=== PATIENT | female | born 1970 | race African-American/Black ===

== ENCOUNTER 2017-05-24 02:47 | Emergency (ER) | payer OTHER ==
[~2017-05-24] VITALS: Ht 165.1 cm; Wt 70.0 kg
[~2017-05-24 02:47] MED LIST: HYDR-2768 PO; LABE100T2 PO; ZOLO25TA PO
[2017-05-24 03:01] VITALS: BP 198/106; PULSE 70; RESP 18; TEMP 98.1; O2SAT 98
[2017-05-24 03:39] VITALS: BP 157/90; PULSE 74; RESP 18; O2SAT 97
--- NOTE | 2017-05-24 03:52 | PD ---
HPI . Headache Chief Complaint: Headache Time Seen by Provider: 03:46 Travel History International Travel<30 days: No Contact w/Intl Traveler<30days: No Traveled to known affect area: No History of Present Illness HPI This patient presents complaining with a right-sided headache which started at 1 :20 AM. She rates the pain 9/10. She took Tylenol with mild relief of her symptoms. The headache is associated with nausea and palpitations. 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; HELLP) Anxiety: No Depression: No Heart Rhythm Problems: No Cancer: No Cardiac Catheterization: No Cardiovascular Problems: Yes (CHEST PAIN) High Cholesterol: No Chemotherapy: No Chest Pain: No Congestive Heart Failure: Yes (DURING , NOT SINCE) COPD: No Cerebrovascular Accident: No Diabetes: No Diminished Hearing: No Endocrine: No Gastrointestinal Disorders: No GERD: No Glaucoma: No Genitourinary: No Headaches: Yes (MIGRAINES IN THE PAST) Hepatitis: No Hiatal Hernia: No Hypertension: Yes Kidney Stones: No Medical other: Yes (chf during pregancy) Musculoskeletal: No Neurologic: No Psychiatric: No Reproductive: No Respiratory: No Immunizations Current: Yes Myocardial Infarction: No Radiation Therapy: No Renal Failure: No Sickle Cell Disease: No Sleep Apnea: No Thyroid Disease: No Ulcer: No Tetanus Vaccination: Unknown Influenza Vaccination: No ?: Not : 3 Para: 2 Miscarriage: 1 Dilation and Curettage (D&C): Yes Past Surgical History Abdominal Surgery: No AICD: No Cardiac Surgery: No Section: Yes (x 1) Coronary Artery Bypass Graft: No Ear Surgery: No Endocrine Surgery: No Eye Surgery: No Genitourinary Surgery: No Gynecologic Surgery: Yes (d and c ) Hysterectomy: Yes Insulin Pump: No Neurologic Surgery: No Oral Surgery: Yes (wisdom tooth removed) Pacemaker: No Thoracic Surgery: No Other Surgery: No Family History Family Myocardial Infarction: No Social History Alcohol Use: Yes (OCC) Tobacco Use: No Substance Use: No Allergies-Medications (Allergen,Severity, Reaction): Coded Allergies: No Known Allergies (Verified Adverse Reaction, Unknown, 05/24/17) Reported Meds & Prescriptions Reported Meds & Active Scripts Active Reported Zoloft (Sertraline HCl) 25 Mg Tab 0 PO DAILY UNKNOWN DOSE Hctz (Hydrochlorothiazide) 25 Mg Tab 25 Mg PO DAILY Normodyne (Labetalol HCl) 100 Mg Tab 100 Mg PO DAILY Review of Systems Except as stated in HPI: all other systems reviewed are Neg Eyes: Positive: Photophobia HENT: Positive: Headaches Cardiovascular: Positive: Palpitations Gastrointestinal: Positive: Nausea Physical Exam Narrative GENERAL: Photophobic. SKIN: warm/dry. HEAD: Normocephalic. Scalp is nontender. EYES: Pupils equal and round. No scleral icterus. No injection or drainage. ENT: No nasal bleeding or discharge. Mucous membranes pink and moist. NECK: Supple. CARDIOVASCULAR: Regular rate and rhythm. RESPIRATORY: No accessory muscle use. MUSCULOSKELETAL: No obvious deformities. NEUROLOGICAL: Awake and alert. No obvious cranial nerve deficits. Motor grossly within normal limits. Normal speech. PSYCHIATRIC: Appropriate mood and affect; insight and judgment normal. Data Data Last Documented VS Vital Signs Date Time Temp Pulse Resp B/P (MAP) Pulse Ox O2 Delivery O2 Flow Rate FiO2 05/24/17 03:39 74 18 157/90 (112) 97 Room Air 05/24/17 03:01 98.1 Orders Orders Diphenhydramine Inj (Benadryl Inj) (05/24/17 04:00) Prochlorperazine Inj (Compazine Inj) (05/24/17 04:00) ^ Saline Lock (05/24/17 03:47) MDM Medical Decision Making Medical Screen Exam Complete: Yes Emergency Medical Condition: Yes Differential Diagnosis Differential diagnosis of headache includes but is not limited to migraine, muscle contraction headache, brain tumor, brain bleed Narrative Course This patient presents with a headache. Her neurological exam is nonfocal. Her neck is supple. She is afebrile. Her headache will be treated with IV Compazine and Benadryl. The headache is improving after the Compazine and Benadryl. She will be discharged home. 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
[2017-05-24] MEDS ORDERED: PROCHLORPERAZINE INJ 10 MG/2 ML VIAL IV PUSH ONE (04:00)
[2017-05-24] MEDS ORDERED: diphenhydrAMINE HCL 50 MG/ML VIAL IV PUSH ONE (04:00)
== END 2017-05-24 05:05 | disposition home or self-care (01) ==
LOC: NEPC 02:47
DX: G44.039 Episodic paroxysmal hemicrania, not intractable (principal); I10 Essential (primary) hypertension
CPT/HCPCS: 96374; 99284; J0780; J1200